=== PATIENT | male | born 1960 | race Two or more races ===

== ENCOUNTER 2020-08-31 12:14 | Observation (INO) | payer OTHER ==
[~2020-08-31] VITALS: Ht 170.2 cm; Wt 65.3 kg
--- NOTE | 2020-08-31 12:25 | NUR ---
PT BIB [facility]. PT WAS AT WORK TODAY AND HAD 2 WITNESSED SYNCOPAL EPISODES THIS MORNING. PT DOES NOT REMEMBER EVENTS. PT DENIES ANY HEAD OR NECK PAIN. PT STATED THAT HIS AND SON HAVE BEEN SICK THE PAST WEEK WITH A COUGH. PT STATED THAT LAST WEEK HE HAD A FEVER, BUT HAS NOT HAD ANY OTHER SYMPTOMS BESIDE FEELING GENERALLY WEAK. PT STATED THAT HE HAS BEEN EATING AND DRINKING NORMALLY AND DENIED AND N/V/D.
[2020-08-31] MEDS ORDERED: SODIUM CHLORIDE FLUSH 10ML SYR IVF ONE (12:30)
[2020-08-31 12:41] LABS: BASOPHILS % (AUTO) 1 % (0-1); EOSINOPHILS % (AUTO) 0 % (1-7); LYMPHOCYTES % (AUTO) 14 % (22-44); MEAN CORPUSCULAR HEMOGLOBIN 28.8 pg (27.5-34.5); MEAN PLATELET VOLUME 8.9 fL (7.4-10.4); MONOCYTES % (AUTO) 8 % (2-9); NEUTROPHILS % (AUTO) 77 % (42-75); PLATELET COUNT 200 x10^3/uL (130-400); RED BLOOD COUNT 5.03 x10^6/uL (4.38-5.82); RED CELL DISTRIBUTION WIDTH 14.3 % (9.4-14.8)
[2020-08-31 12:50] LABS: MD NO
[2020-08-31 12:53] LABS: ALANINE AMINOTRANSFERASE 32 U/L (12-78); ALBUMIN 3.9 g/dL (3.4-5.0); ANION GAP 5 mmol/L (5-15); CALCIUM 8.6 mg/dL (8.5-10.1); CHLORIDE 108 mmol/L (98-107); CREATININE 1.98 mg/dL (0.7-1.3)
[2020-08-31 12:56] LABS: ALKALINE PHOSPHATASE 61 U/L (45-117); BILIRUBIN,TOTAL 0.5 mg/dL (0.2-1.0); TOTAL PROTEIN 7.9 g/dL (6.4-8.2); TROPONIN I < 0.015 ng/mL (0.000-0.045)
--- NOTE | 2020-08-31 13:30 | NUR ---
PT RESTING COMFORTABLY IN [facility]. CALL LIGHT WITHIN REACH.
[2020-08-31 13:58] LABS: MICROSCOPIC NOT IND
--- NOTE | 2020-08-31 14:28 | NUR ---
PT RESTING COMFORTABLY. AWAITING BED ASSIGNMENT. CALL LIGHT WITHIN REACH.
--- NOTE | 2020-08-31 15:30 | NUR ---
ADMITTING MD AT BEDSIDE.
--- NOTE | 2020-08-31 15:53 | NUR ---
REPORT GIVEN TO DANNY RODRIGUEZ.
[2020-08-31] MEDS ORDERED: ACETAMINOPHEN 325 MG TABLET PO PRN (16:00)
[2020-08-31] MEDS ORDERED: ONDANSETRON ODT 4 MG PO PRN (16:00)
[2020-08-31] MEDS ORDERED: POLYETHYLENE GLYCOL 17 GM PACKET PO PRN (16:00)
[2020-08-31] MEDS ORDERED: ONDANSETRON 2MG/ML, 2ML IVPush PRN (16:00)
[2020-08-31] MEDS ORDERED: SENNA/DOCUSATE TABLET PO PRN (16:00)
[2020-08-31] MEDS ORDERED: PLEASE ENTER ALLERGIES MC SCH (16:30)
[2020-08-31 16:45] VITALS: BP_SYST 123; BP_SYST 130; BP_DIAS 80; BP_DIAS 83
[2020-08-31] MEDS: LACTATED RINGERS 1,000 ML IV SCH (17:04)
[2020-08-31 19:31] LABS: MICROSCOPIC NOT IND
[2020-08-31 21:57] VITALS: BP 117/73
[2020-08-31 22:00] VITALS: BP_SYST 118; BP_SYST 132; BP_DIAS 78; BP_DIAS 85
[2020-08-31 22:01] VITALS: BP 129/87
[2020-09-01 01:46] VITALS: BP 115/75
[2020-09-01] MEDS: LACTATED RINGERS 1,000 ML IV SCH (02:27)
[2020-09-01 06:15] LABS: BASOPHILS % (AUTO) 1 % (0-1); EOSINOPHILS % (AUTO) 1 % (1-7); LYMPHOCYTES % (AUTO) 26 % (22-44); MD NO; MEAN CORPUSCULAR HEMOGLOBIN 28.8 pg (27.5-34.5); MEAN CORPUSCULAR HGB CONC 33.6 g/dL (33.2-36.2); MEAN PLATELET VOLUME 9.4 fL (7.4-10.4); MONOCYTES % (AUTO) 10 % (2-9); NEUTROPHILS % (AUTO) 62 % (42-75); PLATELET COUNT 180 x10^3/uL (130-400); RED BLOOD COUNT 4.51 x10^6/uL (4.38-5.82)
[2020-09-01 06:29] LABS: CHLORIDE 107 mmol/L (98-107)
[2020-09-01 06:42] LABS: ANION GAP 6 mmol/L (5-15); CALCIUM 8.8 mg/dL (8.5-10.1); CREATININE 1.16 mg/dL (0.7-1.3)
[2020-09-01 06:56] VITALS: BP 119/75
== END 2020-09-01 10:15 | disposition home or self-care (01) ==
LOC: ED 13:15 → INTOOBSV 14:46 → EDIP 14:46 → 4EST 16:05 → DCLOUNGE 09-01 10:05
PROVIDERS: ADMIT Family Medicine; ATTEND Family Medicine
DX: R53.1 Weakness (principal); N17.0 Acute kidney failure with tubular necrosis; R55 Syncope and collapse; R94.4 Abnormal results of kidney function studies; I10 Essential (primary) hypertension; R73.03 Prediabetes; W18.30XA Fall on same level, unspecified, initial encounter; Y93.89 Activity, other specified; Y92.89 Other specified places as the place of occurrence of the external cause
CPT/HCPCS: 36415; 80048; 80053; 81003; 83036; 83605; 84484; 85025; 93005; 96360; 96361; 99284; G0378; J7120; 99283; 99285